=== PATIENT | male | born 1995 | race American Indian/Alaskan Native ===

== ENCOUNTER 2017-06-12 16:16 | Emergency (ER) | payer MEDICAID, OTHER ==
--- NOTE | 2017-06-12 16:52 | EDM.PDOC ---
ED HPI GENERAL MEDICAL PROBLEM - General Chief Complaint: Lower Extremity Injury/Pain Stated Complaint: DROPPED A FORKLIFT TIED ON RT FOOT Time Seen by Provider: 06/12/17 16:45 Source of Information: Reports: Patient History Limitations: Reports: No Limitations - History of Present Illness INITIAL COMMENTS - FREE TEXT/NARRATIVE: HISTORY AND PHYSICAL: History of present illness: [Patient comes to the emergency room complaining of right foot pain. States that he was at work at [employer] and was adjusting the level of the forklift osito when it came loose and fell onto the top of his right foot. He complains of pain and numbness. No previous injury or surgery to his foot. Was wearing a steel toed boot.] Review of systems: As per history of present illness and below otherwise all systems reviewed and negative. Past medical history: As per history of present illness and as reviewed below otherwise noncontributory. Surgical history: As per history of present illness and as reviewed below otherwise noncontributory. Social history: No reported history of drug or alcohol abuse. Family history: As per history of present illness and as reviewed below otherwise noncontributory. Physical exam: HEENT: Atraumatic, normocephalic. Extremities: Swelling and ecchymosis is present to the top of his medial right foot, just below first and second toes. Pedal pulses present. Neurovascular intact. Cap refill less than 2 seconds. Neurovascular unremarkable. Neuro: Awake, alert, oriented. Motor and sensory unremarkable throughout. Exam nonfocal. Diagnostics: [Right foot x-ray] Impression: [Right foot injury and pain] Plan: [Pain medication is offered which patient declines at this time. X-ray shows no fractures or abnormalities. Patient declines a walking boot, but would like to use crutches until he feels improved. Strict return precautions are given to patient. Follow-up with PCP in 2-3 days. Hqch-[id number] analgesics, rest, elevation. He is given a note excusing him from work for 2 days. He may return to work on Wednesday if he is feeling improved.] Definitive disposition and diagnosis as appropriate pending reevaluation and review of above. right foot Pain Score (Numeric/FACES): 7 - Related Data Allergies Allergy/AdvReac Type Severity Reaction Status Date / Time No Known Allergies Allergy Verified 06/12/17 16:41 Home Meds: Home Meds . [No Known Home Meds] 04/25/16 [History] Past Medical History HEENT History: Reports: None Cardiovascular History: Reports: None Respiratory History: Reports: None Gastrointestinal History: Reports: None Genitourinary History: Reports: None Musculoskeletal History: Reports: None Neurological History: Reports: None Endocrine/Metabolic History: Reports: None - Infectious Disease History Infectious Disease History: Reports: None - Past Surgical History HEENT Surgical History: Reports: None Cardiovascular Surgical History: Reports: None Respiratory Surgical History: Reports: None GI Surgical History: Reports: None Endocrine Surgical History: Reports: None Social & Family History - Tobacco Use Smoking Status *Q: Light Tobacco Smoker Years of Tobacco use: 1 Packs/Tins Daily: 0.1 Review of Systems - Review of Systems Review Of Systems: ROS reveals no pertinent complaints other than HPI. ED EXAM, GENERAL - Physical Exam Exam: See Below Course - Vital Signs Last Recorded V/S: Last Vital Signs Temp 97.8 F 06/12/17 16:41 Pulse 80 06/12/17 16:41 Resp 18 06/12/17 16:41 BP 157/68 H 06/12/17 16:41 Pulse Ox 97 06/12/17 16:41 - Orders/Labs/Meds Orders: Active Orders 24 hr Category Date Time Status Foot 2V Rt [CR] Stat Exams 06/12/17 16:51 Taken Departure - Departure Time of Disposition: 17:40 Disposition: Home, Self-Care 01 Condition: Good Clinical Impression: Right foot pain - Discharge Information Referrals: PCP,None [Primary Care Provider] - Forms: ED Department Discharge Additional Instructions: The following information is given to patients seen in the emergency department who are being discharged to home. This information is to outline your options for follow-up care. We provide all patients seen in our emergency department with a follow-up referral. The need for follow-up, as well as the timing and circumstances, are variable depending upon the specifics of your emergency department visit. If you don't have a primary care physician on staff, we will provide you with a referral. We always advise you to contact your personal physician following an emergency department visit to inform them of the circumstance of the visit and for follow-up with them and/or the need for any referrals to a consulting specialist. The emergency department will also refer you to a specialist when appropriate. This referral assures that you have the opportunity for follow-up care with a specialist. All of these measure are taken in an effort to provide you with optimal care, which includes your follow-up. Under all circumstances we always encourage you to contact your private physician who remains a resource for coordinating your care. When calling for follow-up care, please make the office aware that this follow-up is from your recent emergency room visit. If for any reason you are refused follow-up, please contact the [facility] emergency department at and asked to speak to the emergency department charge nurse. [facility] [address] [place] [id number] Follow-up with your primary care provider in 2-3 days. Rest, ice, elevation. [id number] analgesics and pain relievers. Return to ER as needed as discussed. - My Orders Last 24 Hours: My Active Orders 06/12/17 16:51 Foot 2V Rt [CR] Stat - Assessment/Plan Last 24 Hours: My Active Orders 06/12/17 16:51 Foot 2V Rt [CR] Stat
[2017-06-12 18:24] VITALS: BP 136/66
--- NOTE | 2017-06-14 09:38 | CR ---
EXAM DATE: 06/12/17 PATIENT'S AGE: 21 Patient: BELGICA SHEEHAN Facility: [place], [place] Site . Site : 1997 Study: XRay Extremity Right FOOT [id number] 5:13:53 PM Ordering Physician: Doctor Hernández Final Report: INDICATION: Right foot injury. TECHNIQUE: Two views of the right foot. COMPARISON: None. FINDINGS: No obvious soft tissue swelling, fracture or subluxation. IMPRESSION: Negative right foot. Dictated by Junior Torres MD @ Jun 12 2017 5:27PM (Electronic Signature) Report Signed by Proxy. HATTIE
== END 2017-06-12 18:20 | disposition home or self-care (01) ==
LOC: MW.ED 16:16
DX: S90.31XA Contusion of right foot, initial encounter (principal); F17.210 Nicotine dependence, cigarettes, uncomplicated; W20.8XXA Other cause of strike by thrown, projected or falling object, initial encounter
CPT/HCPCS: 73620-26-RT; 73620-RT; 99283

== ENCOUNTER 2019-05-24 21:36 | Emergency (ER) | payer MEDICAID, OTHER ==
[2019-05-24 21:46] VITALS: BP 120/81; PULSE 71
--- NOTE | 2019-05-24 21:46 | EDM.PDOC ---
ED HPI GENERAL MEDICAL PROBLEM - General Chief Complaint: General Stated Complaint: LEFT SIDE TOOTHACHE Time Seen by Provider: 05/24/19 21:46 Source of Information: Reports: Patient History Limitations: Reports: No Limitations - History of Present Illness INITIAL COMMENTS - FREE TEXT/NARRATIVE: HISTORY AND PHYSICAL: History of present illness: Patient is a 23-year-old male presents to the ED with complaint of tooth pain x 1 week. He states denies injury or trauma, fevers, chills, nausea, vomiting. He is schedule to see a dentist on July 19. He denies significant past medical history. Review of systems: As per history of present illness and below otherwise all systems reviewed and negative. Past medical history: As per history of present illness and as reviewed below otherwise noncontributory. Surgical history: As per history of present illness and as reviewed below otherwise noncontributory. Social history: No reported history of drug or alcohol abuse. Family history: As per history of present illness and as reviewed below otherwise noncontributory. Physical exam: General: Patient sitting comfortably in no acute distress and nontoxic appearing HEENT: Swelling and erythema of gums adjacent to teeth #23 and #22. Atraumatic, normocephalic, pupils reactive, negative for conjunctival pallor or scleral icterus, mucous membranes moist, throat clear, neck supple, nontender, trachea midline. No meningeal signs. Lungs: Clear to auscultation, breath sounds equal bilaterally, chest nontender. Heart: S1S2, regular, negative for clicks, rubs, or overt murmur. Abdomen: Soft, nondistended, nontender. Negative for masses or hepatosplenomegaly. Negative for costovertebral tenderness. No rigidity, rebound , guarding. Pelvis: Stable nontender. Genitourinary: Deferred. Rectal: Deferred. Extremities: Atraumatic, negative for cords or calf pain. Neurovascular unremarkable. Neuro: Awake, alert, oriented. Cranial nerves II through XII unremarkable. Cerebellum unremarkable. Motor and sensory unremarkable throughout. Exam nonfocal. Notes: Diagnostics: [] Therapeutics: Dental balls Toradol 60mg IM Prescriptions: Augmentin Impression: Dentalgia, dental infection Plan: Alternate tylenol and ibuprofen as needed take antibiotic as instructed Follow up with primary care provider Return to ED as needed as discussed Definitive disposition and diagnosis as appropriate pending reevaluation and review of above. dental Pain Score (Numeric/FACES): 10 - Related Data Allergies Allergy/AdvReac Type Severity Reaction Status Date / Time No Known Allergies Allergy Verified 05/24/19 21:46 Home Meds: Home Meds Amoxicillin/Potassium Clav [Augmentin 875-125 Tablet] 1 each PO BID 7 Days #14 tablet 05/24/19 [Rx] Past Medical History HEENT History: Reports: None Cardiovascular History: Reports: None Respiratory History: Reports: None Gastrointestinal History: Reports: None Genitourinary History: Reports: None Musculoskeletal History: Reports: None Neurological History: Reports: None Psychiatric History: Reports: None Endocrine/Metabolic History: Reports: None Hematologic History: Reports: None Immunologic History: Reports: None Oncologic (Cancer) History: Reports: None Dermatologic History: Reports: None - Infectious Disease History Infectious Disease History: Reports: None - Past Surgical History Head Surgeries/Procedures: Reports: None HEENT Surgical History: Reports: None Cardiovascular Surgical History: Reports: None Respiratory Surgical History: Reports: None GI Surgical History: Reports: None Endocrine Surgical History: Reports: None Social & Family History - Family History Family Medical History: Noncontributory - Caffeine Use Caffeine Use: Reports: Coffee ED ROS GENERAL - Review of Systems Review Of Systems: ROS reveals no pertinent complaints other than HPI. ED EXAM, GENERAL - Physical Exam Exam: See Below (see dictation) Course - Vital Signs Last Recorded V/S: Last Vital Signs Temp 97 F 05/24/19 21:41 Pulse 71 05/24/19 21:41 Resp 18 05/24/19 21:41 BP 120/81 05/24/19 21:41 Pulse Ox 96 05/24/19 21:41 - Orders/Labs/Meds Orders: Active Orders 24 hr Category Date Time Status Benzocaine [Hurricaine One 20%] Med 05/24/19 21:50 Once 2 each MUCMEM ONETIME ONE Ketorolac [Toradol] Med 05/24/19 21:50 Once 60 mg IM ONETIME ONE Lidocaine 2% [Xylocaine 2% Viscous] Med 05/24/19 21:50 Once 15 ml PO ONETIME ONE Medication Orders Lidocaine HCl (Xylocaine 2% Viscous) 15 ml PO ONETIME ONE Stop: 05/24/19 21:51 Meds: Medications Generic Name Dose Route Start Last Admin Trade Name Freq PRN Reason Stop Dose Admin Lidocaine HCl 15 ml 05/24/19 21:50 Xylocaine 2% Viscous PO 05/24/19 21:51 ONETIME ONE Departure - Departure Time of Disposition: 21:52 Disposition: Home, Self-Care 01 Condition: Good Clinical Impression: Dentalgia, Dental infection - Discharge Information Referrals: PCP,Unknown [Primary Care Provider] - Forms: ED Department Discharge Additional Instructions: The following information is given to patients seen in the emergency department who are being discharged to home. This information is to outline your options for follow-up care. We provide all patients seen in our emergency department with a follow-up referral. The need for follow-up, as well as the timing and circumstances, are variable depending upon the specifics of your emergency department visit. If you don't have a primary care physician on staff, we will provide you with a referral. We always advise you to contact your personal physician following an emergency department visit to inform them of the circumstance of the visit and for follow-up with them and/or the need for any referrals to a consulting specialist. The emergency department will also refer you to a specialist when appropriate. This referral assures that you have the opportunity for follow-up care with a specialist. All of these measure are taken in an effort to provide you with optimal care, which includes your follow-up. Under all circumstances we always encourage you to contact your private physician who remains a resource for coordinating your care. When calling for follow-up care, please make the office aware that this follow-up is from your recent emergency room visit. If for any reason you are refused follow-up, please contact the [facility] Emergency Department at and asked to speak to the emergency department charge nurse. [facility] [address] [place] [address] [id number] [address] [address] Alternate tylenol and ibuprofen as needed take antibiotic as instructed Follow up with primary care provider Return to ED as needed as discussed - My Orders Last 24 Hours: My Active Orders 05/24/19 21:50 Benzocaine [Hurricaine One 20%] 2 each MUCMEM ONETIME ONE Ketorolac [Toradol] 60 mg IM ONETIME ONE Lidocaine 2% [Xylocaine 2% Viscous] 15 ml PO ONETIME ONE - Assessment/Plan Last 24 Hours: My Active Orders 05/24/19 21:50 Benzocaine [Hurricaine One 20%] 2 each MUCMEM ONETIME ONE Ketorolac [Toradol] 60 mg IM ONETIME ONE Lidocaine 2% [Xylocaine 2% Viscous] 15 ml PO ONETIME ONE
[2019-05-24] MEDS ORDERED: Ketorolac 60 MG/2 ML SDV IM ONE (21:50)
[2019-05-24] MEDS ORDERED: Benzocaine 20% Topical Spray UD MUCMEM ONE (21:50)
[2019-05-24] MEDS ORDERED: Lidocaine 2% Viscous Solution 15 ML Cup PO ONE (21:50)
== END 2019-05-24 22:25 | disposition home or self-care (01) ==
LOC: MW.ED 21:36
DX: K04.7 Periapical abscess without sinus (principal)
CPT/HCPCS: 96372; 99282; A9270; J1885

== ENCOUNTER 2020-09-26 21:33 | Emergency (ER) | payer OTHER ==
[2020-09-26] MEDS ORDERED: Sodium Chloride 0.9% 10 ML Syringe FLUSH PRN (22:09)
[2020-09-26] MEDS ORDERED: Sodium Chloride 0.9% 2.5 ML Syringe FLUSH PRN (22:09)
[2020-09-26 22:32] LABS: BLOOD UREA NITROGEN,BUN 13 mg/dL (7.0-18.0); CARBON DIOXIDE,CO2 26.4 mmol/L (21.0-32.0); CHLORIDE,CL 104 mmol/L (98-107); GLUCOSE RANDOM 107 mg/dL (74-106); POTASSIUM,K 3.3 mmol/L (3.5-5.1); SODIUM,NA 141 mmol/L (136-148)
--- NOTE | 2020-09-26 22:34 | CR ---
INDICATION: Chest pain TECHNIQUE: Chest 2 views. COMPARISON: May 27, 2017 FINDINGS: Cardiovascular and mediastinum: Heart size and vasculature are normal in caliber and appearance. Mediastinum is within normal limits. Lungs and pleural spaces: Lungs are clear. No sign of infiltrate or mass. No sign of pleural effusion. No pneumothorax. Bones and soft tissues: No significant findings. IMPRESSION: No sign of acute disease. Dictated by Caridad Laurent MD @ Sep 26 2020 10:32PM Signed by Dr. Caridad Laurent @ Sep 26 2020 10:32PM
--- NOTE | 2020-09-26 22:41 | EDM.PDOC ---
ED HPI GENERAL MEDICAL PROBLEM - General Chief Complaint: Chest Pain Stated Complaint: CHEST PAIN Time Seen by Provider: 09/26/20 21:48 - History of Present Illness INITIAL COMMENTS - FREE TEXT/NARRATIVE: HISTORY AND PHYSICAL: History of present illness: This is a 24-year-old gentleman with no significant past medical history for hypertension, diabetes, liver, lung, kidney problems who presents to the ER today secondary to midsternal chest pain that started when he was getting out of his truck. Patient reports no nausea, vomiting, diarrhea, dysuria, frequency, urgency, fevers, shakes, chills, abdominal pain. Patient denies any shortness of breath or diaphoresis. Patient denies any family history of coronary disease but reports that his grandfather and uncle both required heart transplant but is unclear why. Patient reports that he does smoke tobacco. Patient denies any alcohol or drug use. Patient has no known drug allergies. Patient reports that the pain increases deep inspiration and palpation. Patient reports that the pain has been constant since it started approximately 1 to 2 hours ago. Review of systems: As per history of present illness and below otherwise all systems reviewed and negative. Past medical history: As per history of present illness and as reviewed below otherwise noncontributory. Surgical history: As per history of present illness and as reviewed below otherwise noncontri butory. Social history: No reported history of drug or alcohol abuse. Family history: As per history of present illness and as reviewed below otherwise noncontributory. Physical exam: Constitutional: Patient is oriented to person, place, and time. Appears well- developed and well-nourished. No distress. HEENT: Moist mucous membranes Head: Normocephalic and atraumatic Eyes: Right eye exhibits no discharge. Left eye exhibits no discharge. No scleral icterus Neck: Normal range of motion. No tracheal deviation present. Cardiovascular: Normal rate and regular rhythm. Pulmonary: Effort normal, no respiratory distress. Abdominal: No distention Musculoskeletal: Normal range of motion. No calf tenderness. No Homans' sign. No swelling. Neurologic: Alert and oriented to person, place and time. Skin: [place], warm and dry. Psychiatric: Normal mood and affect. Behavior is normal. Judgment and thought content normal. Nursing note and vital signs have been reviewed This patient was seen and evaluated during the 2019 SARS-CoV-2 novel coronavirus pandemic period. Community viral transmission is ongoing at time of this encounter and the emergency department is operating under pandemic response procedures. Diagnostics: EKG: As interpreted by ER physician: Roxanne: Nonspecific ST-T wave abnormalities Normal axis No evidence of ST elevation OK Normal sinus rhythm heart rate of 85 Chest Xray: Normal cardiac silhouette No infiltrates or effusions identified. No PTX No evidence of acute bony fracture. As interpreted by ER MD: [employer]: [] Assessment and plan: This is a 24-year-old gentleman who presents ER today with atypical chest pain that started acutely when he was getting out of his truck. Patient's presentation does not appear to be significant for cardiac etiology. Patient's EKG is unremarkable. Patient has a normal chest x-ray. Patient's troponin is negative. Patient's D-dimer is slightly elevated 0.55. Given his presentation and the elevated trop D-dimer, we will order a CTA to rule out a PE. Patient has been reevaluated in the ED and reports he feels significantly improved. 12:18 AM: CTA reveals no evidence of PE. There are small nodules that I did discuss with the patient and need to follow-up with a primary care physician to follow this up. 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 He reports that he has been doing this for only 2 days so this appears to be less likely the culprit. Patient will be discharged home with instructions to follow-up with her primary care physician this week if the pain persist. Reassessment at the time of disposition demonstrates that the patient is in no acute distress. The patient has remained stable throughout the entire ED visit and is without objective evidence for acute process requiring urgent intervention or hospitalization. The patient is stable for discharge, counseling is provided as documented above, discussed symptomatic treatment and specific conditions for return. I have spoken with the patient/caregiver and discussed todays findings, in addition to providing specific details for the plan of care. Questions are answered and there is agreement with the plan. Definitive disposition and diagnosis as appropriate pending reevaluation and review of above. Chest Pain Score (Numeric/FACES): 5 - Related Data Allergies Allergy/AdvReac Type Severity Reaction Status Date / Time No Known Allergies Allergy Verified 09/26/20 21:41 Home Meds: Home Meds . [No Known Home Meds] 09/26/20 [History] Past Medical History - Past Health History Medical/Surgical History: Denies Medical/Surgical History HEENT History: Reports: None Cardiovascular History: Reports: None Respiratory History: Reports: None Gastrointestinal History: Reports: None Other Gastrointestinal History: liver biopsy-benign Genitourinary History: Reports: None Musculoskeletal History: Reports: None Neurological History: Reports: None Psychiatric History: Reports: None Endocrine/Metabolic History: Reports: None Hematologic History: Reports: None Immunologic History: Reports: None Oncologic (Cancer) History: Reports: None Dermatologic History: Reports: None - Infectious Disease History Infectious Disease History: Reports: None - Past Surgical History Head Surgeries/Procedures: Reports: None HEENT Surgical History: Reports: None Cardiovascular Surgical History: Reports: None Respiratory Surgical History: Reports: None GI Surgical History: Reports: None Endocrine Surgical History: Reports: None Other Endocrine Surgeries/Procedures: liver biopsy Social & Family History - Family History Family Medical History: No Pertinent Family History - Tobacco Use Tobacco Use Status *Q: Current Every Day Tobacco User Years of Tobacco use: 6 Packs/Tins Daily: 0.5 - Caffeine Use Caffeine Use: Reports: Energy Drinks, Soda - Recreational Drug Use Recreational Drug Use: No ED ROS GENERAL - Review of Systems Review Of Systems: See Below ED EXAM, GENERAL - Physical Exam Exam: See Below Course - Vital Signs Last Recorded V/S: Last Vital Signs Temp 97.4 F 09/26/20 21:37 Pulse 107 H 09/26/20 21:37 Resp 18 09/26/20 21:37 BP 170/87 H 09/26/20 21:37 Pulse Ox 99 09/26/20 21:37 - Orders/Labs/Meds Orders: Active Orders 24 hr Category Date Time Status Sodium Chloride 0.9% [Saline Flush] Med 09/26/20 22:09 Active 10 ml FLUSH ASDIRECTED PRN Sodium Chloride 0.9% [Saline Flush] Med 09/26/20 22:09 Active 2.5 ml FLUSH ASDIRECTED PRN Saline Lock Insert [OM.PC] Stat Oth 09/26/20 22:09 Ordered Medication Orders Sodium Chloride (Saline Flush) 10 ml FLUSH ASDIRECTED PRN PRN Reason: Keep Vein Open Last Admin: 09/26/20 23:01 Dose: 10 ml Documented by: AYESHA Sodium Chloride (Saline Flush) 2.5 ml FLUSH ASDIRECTED PRN PRN Reason: Keep Vein Open Last Admin: 09/26/20 23:01 Dose: 2.5 ml Documented by: AYESHA Labs: Laboratory Tests 09/26/20 09/26/20 09/26/20 Range/Units 21:51 21:51 21:51 WBC 8.74 (4.0-11.0) K/uL RBC 5.25 (4.50-5.90) M/uL Hgb 16.0 (13.0-17.0) g/dL Hct 44.5 (38.0-50.0) % MCV 84.8 (80.0-98.0) fL MCH 30.5 (27.0-32.0) pg MCHC 36.0 (31.0-37.0) g/dL RDW Std Deviation 37.0 (28.0-62.0) fl RDW Coeff of Paras 12 (11.0-15.0) % Plt Count 276 (150-400) K/uL MPV 9.50 (7.40-12.00) fL Neut % (Auto) 56.3 (48.0-80.0) % Lymph % (Auto) 31.1 (16.0-40.0) % [place] % (Auto) 10.0 (0.0-15.0) % Eos % (Auto) 2.3 (0.0-7.0) % Baso % (Auto) 0.3 (0.0-1.5) % Neut # (Auto) 4.9 (1.4-5.7) K/uL Lymph # (Auto) 2.7 H (0.6-2.4) K/uL [place] # (Auto) 0.9 H (0.0-0.8) K/uL Eos # (Auto) 0.2 (0.0-0.7) K/uL Baso # (Auto) 0.0 (0.0-0.1) K/uL Nucleated RBC % 0.0 /100WBC Nucleated RBCs # 0 K/uL D-Dimer, Quantitative 0.55 H (0.0-0.50) mg/L FEU Sodium 141 (136-148) mmol/L Potassium 3.3 L (3.5-5.1) mmol/L Chloride 104 (98-107) mmol/L Carbon Dioxide 26.4 (21.0-32.0) mmol/L BUN 13 (7.0-18.0) mg/dL Creatinine 1.1 (0.8-1.3) mg/dL Est Cr Clr Drug Dosing 132.75 mL/min Estimated GFR (MDRD) > 60.0 ml/min Glucose 107 H (74-106) mg/dL Calcium 8.7 (8.5-10.1) mg/dL Total Bilirubin 0.6 (0.2-1.0) mg/dL AST 41 H (15-37) IU/L ALT 74 H (14-63) IU/L Alkaline Phosphatase 116 (46-116) U/L Troponin I < 0.050 (0.000-0.056) ng/mL Total Protein 7.5 (6.4-8.2) g/dL Albumin 3.9 (3.4-5.0) g/dL Globulin 3.6 (2.6-4.0) g/dL Albumin/Globulin Ratio 1.1 (0.9-1.6) Meds: Medications Generic Name Dose Route Start Last Admin Trade Name Freq PRN Reason Stop Dose Admin Sodium Chloride 10 ml 09/26/20 22:09 09/26/20 23:01 Saline Flush FLUSH 10 ml ASDIRECTED PRN Administration Keep Vein Open Sodium Chloride 2.5 ml 09/26/20 22:09 09/26/20 23:01 Saline Flush FLUSH 2.5 ml ASDIRECTED PRN Administration Keep Vein Open Discontinued Medications Generic Name Dose Route Start Last Admin Trade Name Freq PRN Reason Stop Dose Admin Iopamidol 100 ml 09/26/20 23:22 09/26/20 23:22 Isovue Multipack-370 (76%) IVPUSH 09/26/20 23:23 100 ml ONETIME STA Administration Departure - Departure Time of Disposition: 00:19 Disposition: Home, Self-Care 01 Condition: Good Clinical Impression: Atypical chest pain - Discharge Information Instructions: Nonspecific Chest Pain, Adult Referrals: PCP,Not In Area [Primary Care Provider] - Forms: ED Department Discharge Additional Instructions: You were seen and evaluated in the ER today secondary to pain in your chest. Your blood tests were all normal except for a slightly elevated D-dimer test. Secondary to your elevated D-dimer test, a CTA of your chest was performed so that we can make sure that you do not have a blood clot in your lungs. CTA of your chest was negative for blood clots but did show that you had a couple small nodules. Nodules are generally benign and could be a result of irritation in your lungs from a long time ago. It is recommended that you follow-up with your doctor for a repeat CAT scan in 6 months to make sure that these nodules are not changing in size. We recommend they take ibuprofen to assist you with pain and discomfort. The following information is given to patients seen in the emergency department who are being discharged to home. This information is to outline your options for follow-up care. We provide all patients seen in our emergency department with a follow-up referral. The need for follow-up, as well as the timing and circumstances, are variable depending upon the specifics of your emergency department visit. If you don't have a primary care physician on staff, we will provide you with a referral. We always advise you to contact your personal physician following an emergency department visit to inform them of the circumstance of the visit and for follow-up with them and/or the need for any referrals to a consulting specialist. The emergency department will also refer you to a specialist when appropriate. This referral assures that you have the opportunity for follow-up care with a specialist. All of these measure are taken in an effort to provide you with optimal care, which includes your follow-up. Under all circumstances we always encourage you to contact your private physician who remains a resource for coordinating your care. When calling for follow-up care, please make the office aware that this follow-up is from your recent emergency room visit. If for any reason you are refused follow-up, please contact the [facility] Emergency Department at and asked to speak to the emergency department charge nurse. [facility] [address] [place] [id number] [facility] [address] [place] [id number] Sepsis Event Note (ED) - Evaluation Sepsis Screening Result: No Definite Risk - Focused Exam Vital Signs: Vital Signs Temp Pulse Resp BP Pulse Ox 09/26/20 21:37 97.4 F 107 H 18 170/87 H 99 - My Orders Last 24 Hours: My Active Orders 09/26/20 22:09 Sodium Chloride 0.9% [Saline Flush] 10 ml FLUSH ASDIRECTED PRN Sodium Chloride 0.9% [Saline Flush] 2.5 ml FLUSH ASDIRECTED PRN Saline Lock Insert [OM.PC] Stat - Assessment/Plan Last 24 Hours: My Active Orders 09/26/20 22:09 Sodium Chloride 0.9% [Saline Flush] 10 ml FLUSH ASDIRECTED PRN Sodium Chloride 0.9% [Saline Flush] 2.5 ml FLUSH ASDIRECTED PRN Saline Lock Insert [OM.PC] Stat
[2020-09-26] MEDS ORDERED: Iopamidol 755 MG/ML 500 ML Multipack Bottle IVPUSH STA (23:22)
--- NOTE | 2020-09-26 23:56 | CT ---
INDICATION: Chest pain. Elevated D-dimer. Evaluate for pulmonary embolism. CT CHEST WITH CONTRAST TECHNIQUE: Multidetector CT imaging was performed through the chest following intravenous contrast administration using 100 mL Isovue 370. Coronal and sagittal reconstructions were generated. COMPARISON: None. FINDINGS: Lungs and airways: Trace amount of atelectasis in the lung bases. No confluent pulmonary consolidation. Very small subpleural lung nodules in the left lower lobe on images 93-96, in the right lower lobe on image 111, and in the right upper lobe on image 36, series 402. Central airways are patent. Pleura and pleural spaces: No pleural effusions or pneumothorax. Heart and mediastinum: Normal heart size. No significant pericardial effusion. No pathologically enlarged mediastinal lymph nodes. Vascular structures: Evaluation is mildly limited by image degradation due to large body habitus. No definite filling defects in the pulmonary arterial tree to suggest pulmonary emboli. Normal caliber thoracic aorta. Chest wall and axillae: Mild bilateral gynecomastia. No mass or axillary lymphadenopathy. Osseous structures: Normal for age. No acute fractures identified. Upper abdomen: Unremarkable. IMPRESSION: 1. No pulmonary emboli or other acute intrathoracic abnormality identified. 2. Nonacute findings as detailed above. ROBERTO FELTON MD [employer] Dictated by Vaibhav Felton MD @ 09/26/2020 11:53:45 PM Dictated by: Vaibhav Felton MD @ 09/26/2020 23:55:27 (Electronically Signed)
[2020-09-27 01:28] VITALS: BP 129/76; PULSE 88
== END 2020-09-27 00:37 | disposition home or self-care (01) ==
LOC: MW.ED 21:33
DX: R07.89 Other chest pain (principal); I10 Essential (primary) hypertension; E11.9 Type 2 diabetes mellitus without complications; Z72.0 Tobacco use
CPT/HCPCS: 36415; 71046; 71275; 80053; 84484; 85025; 85379; 93005; 99285; Q9967; 93010; 99283

== ENCOUNTER 2021-03-04 15:59 | Emergency (ER) | payer MEDICAID ==
[2021-03-04] MEDS ORDERED: Ibuprofen 800 MG Tab PO ONE (16:59)
--- NOTE | 2021-03-04 17:21 | EDM.PDOC ---
ED HPI GENERAL MEDICAL PROBLEM - General Chief Complaint: Chest Pain Stated Complaint: CHEST PAINS Time Seen by Provider: 03/04/21 16:07 Source of Information: Reports: Patient - History of Present Illness INITIAL COMMENTS - FREE TEXT/NARRATIVE: Patient presents complaining of central chest pain after lifting a 600 pound heavy object and trying to move it to the side today at work. Pain is sharp and worse with movement. No direct trauma. Patient had chest pain in September and had a negative work-up at that time except CT scan with some pulmonary nodules which he was retold today that he will need to follow-up with her primary care doctor on. No history of blood clot. No unilateral leg swelling. No recent travel, injury, cancer, surgery. Positive smoking. Patient denies any recent fevers chills or cough. chest Pain Score (Numeric/FACES): 7 - Related Data Allergies Allergy/AdvReac Type Severity Reaction Status Date / Time No Known Allergies Allergy Verified 03/04/21 16:09 Home Meds: Home Meds . [No Known Home Meds] 09/26/20 [History] Past Medical History - Past Health History Medical/Surgical History: Denies Medical/Surgical History HEENT History: Reports: None Cardiovascular History: Reports: None Respiratory History: Reports: None Gastrointestinal History: Reports: None Other Gastrointestinal History: liver biopsy-benign Genitourinary History: Reports: None Musculoskeletal History: Reports: None Neurological History: Reports: None Psychiatric History: Reports: None Endocrine/Metabolic History: Reports: None Hematologic History: Reports: None Immunologic History: Reports: None Oncologic (Cancer) History: Reports: None Dermatologic History: Reports: None - Infectious Disease History Infectious Disease History: Reports: None - Past Surgical History Head Surgeries/Procedures: Reports: None HEENT Surgical History: Reports: None Cardiovascular Surgical History: Reports: None Respiratory Surgical History: Reports: None GI Surgical History: Reports: None Endocrine Surgical History: Reports: None Other Endocrine Surgeries/Procedures: liver biopsy Social & Family History - Family History Family Medical History: No Pertinent Family History - Caffeine Use Caffeine Use: Reports: Energy Drinks, Soda - Recreational Drug Use Recreational Drug Use: No ED ROS GENERAL - Review of Systems Review Of Systems: See Below Constitutional: Denies: Fever, Chills Respiratory: Denies: Shortness of Breath Cardiovascular: Reports: Chest Pain GI/Abdominal: Denies: Abdominal Pain, Vomiting Musculoskeletal: Reports: Muscle Pain Skin: Denies: Rash ED EXAM, GENERAL - Physical Exam Exam: See Below Free Text/Narrative:: CONSTITUTIONAL: well appearing in no acute distress SKIN: dry, and intact without rash HENT: Normocephalic, atraumatic, NECK: normal range of motion PULMONARY: normal chest rise and fall, no respiratory distress or stridor no rales rhonchi or wheezing CVS: Regular rate and rhythm no murmurs rubs or gallops NEUROLOGIC: normal speech, moves all extremities, grossly non-focal MUSCULOSKELETAL: no gross deformities, atraumatic PSYCHIATRIC: normal mood and affect #1 Interpretation EKG Date: 03/04/21 Time: 17:19 EKG Interpretation Comments: EKG: NSR, nonspecific ST/T changes, Rate - 82 Course - Vital Signs Text/Narrative:: Differential diagnosis: Musculoskeletal, pneumothorax, PE, pericarditis, ACS, other Patient with chest pain after lifting heavy object. Chest x-ray is unremarkable with reassuring EKG. Ibuprofen supportive treatment and PCP follow-up with return precautions patient is retold that he will need to follow-up in the next couple weeks or so for a follow-up visit regards to the pulmonary nodules Last Recorded V/S: Last Vital Signs Temp 36.2 C 03/04/21 16:05 Pulse 66 03/04/21 17:13 Resp 18 03/04/21 17:13 BP 144/72 H 03/04/21 17:13 Pulse Ox 95 03/04/21 17:13 - Orders/Labs/Meds Orders: Active Orders 24 hr Category Date Time Status EKG Documentation Completion [RC] STAT Care 03/04/21 16:45 Active Chest 1V Frontal [CR] Stat Exams 03/04/21 16:13 Taken Meds: Medications Discontinued Medications Generic Name Dose Route Start Last Admin Trade Name Anjana PRN Reason Stop Dose Admin Ibuprofen 800 mg 03/04/21 16:59 03/04/21 17:12 Ibuprofen 800 Mg Tab PO 03/04/21 17:00 800 mg ONETIME ONE Administration Departure - Departure Time of Disposition: 17:20 Disposition: Home, Self-Care 01 Condition: Good Clinical Impression: Chest pain - Discharge Information Referrals: PCP,None [Primary Care Provider] - Additional Instructions: Take ibuprofen 800 mg 2-3 times a day for the next several days as needed. Return for increasing chest pain or shortness of breath or change or worsening condition. Follow-up with primary care doctor for reevaluation in a couple of days. Listed below are some of the primary clinics in the area. You also need to follow-up in regard to the pulmonary nodules on the CT scan as we discussed. [facility] [address] [place] [id number] [facility] [address] [place] [id number] Sepsis Event Note (ED) - Evaluation Sepsis Screening Result: No Definite Risk - Focused Exam Vital Signs: Vital Signs Temp Pulse Resp BP Pulse Ox 03/04/21 17:13 66 18 144/72 H 95 03/04/21 16:05 36.2 C 76 16 171/96 H 99 - My Orders Last 24 Hours: My Active Orders 03/04/21 16:13 Chest 1V Frontal [CR] Stat 03/04/21 16:45 EKG Documentation Completion [RC] STAT - Assessment/Plan Last 24 Hours: My Active Orders 03/04/21 16:13 Chest 1V Frontal [CR] Stat 03/04/21 16:45 EKG Documentation Completion [RC] STAT
--- NOTE | 2021-03-04 17:22 | CR ---
For Patients: As a result of the Century Cures Act, medical imaging exams and procedure reports are released immediately into your electronic medical record. You may view this report before your referring provider. If you have questions, please contact your health care provider. INDICATION: chest pain TECHNIQUE: Chest 1 view. COMPARISON: 09/26/20 FINDINGS: Cardiovascular and mediastinum: Heart size and vasculature are normal in caliber and appearance. Mediastinum is within normal limits. Lungs and pleural space: Lungs are clear. No sign of infiltrate or mass. No sign of pleural effusion. No pneumothorax. Bones and soft tissues: No significant findings. IMPRESSION: Unremarkable chest. Dictated by: Isaias Interiano MD @ 03/04/2021 17:20:23 (Electronically Signed)
[2021-03-04 17:29] VITALS: BP 146/69; PULSE 60
== END 2021-03-04 17:30 | disposition home or self-care (01) ==
LOC: MW.ED 15:59
DX: R07.9 Chest pain, unspecified (principal); F17.200 Nicotine dependence, unspecified, uncomplicated
CPT/HCPCS: 71045; 93005; 99285; A9270

== ENCOUNTER 2021-03-10 13:10 | Emergency (ER) | payer MEDICAID ==
--- NOTE | 2021-03-10 13:16 | EDM.PDOC ---
ED HPI GENERAL MEDICAL PROBLEM - General Chief Complaint: Chest Pain Stated Complaint: CHEST PAIN Time Seen by Provider: 03/10/21 13:12 Source of Information: Reports: Patient History Limitations: Reports: No Limitations - History of Present Illness INITIAL COMMENTS - FREE TEXT/NARRATIVE: 25-year-old male presents for chest pain. Patient notes symptoms been going on for about 2 months. He describes it as a mid substernal chest pain that is worse with inspiration. Seems get worse in the afternoons and evenings. No associated nausea or vomiting. Mild associated shortness of breath. No lower extremity pain, swelling, redness. He was seen in the emergency department in September for similar symptoms and had a CTA of his chest which was unremarkable aside from some pulmonary nodules. He was seen here about a week ago for similar symptoms which were attributed to musculoskeletal pain. States that he took Motrin prior to arrival which did not really help. He states he has follow-up with her primary care physician in April. He is a smoker. Chest Pain Score (Numeric/FACES): 5 - Related Data Allergies Allergy/AdvReac Type Severity Reaction Status Date / Time No Known Allergies Allergy Verified 03/04/21 16:09 Home Meds: Home Meds . [No Known Home Meds] 09/26/20 [History] Past Medical History - Past Health History Medical/Surgical History: Denies Medical/Surgical History HEENT History: Reports: None Cardiovascular History: Reports: None Respiratory History: Reports: None Gastrointestinal History: Reports: None Other Gastrointestinal History: liver biopsy-benign Genitourinary History: Reports: None Musculoskeletal History: Reports: None Neurological History: Reports: None Psychiatric History: Reports: None Endocrine/Metabolic History: Reports: None Hematologic History: Reports: None Immunologic History: Reports: None Oncologic (Cancer) History: Reports: None Dermatologic History: Reports: None - Infectious Disease History Infectious Disease History: Reports: None - Past Surgical History Head Surgeries/Procedures: Reports: None HEENT Surgical History: Reports: None Cardiovascular Surgical History: Reports: None Respiratory Surgical History: Reports: None GI Surgical History: Reports: None Endocrine Surgical History: Reports: None Other Endocrine Surgeries/Procedures: liver biopsy Social & Family History - Family History Family Medical History: No Pertinent Family History - Caffeine Use Caffeine Use: Reports: Energy Drinks, Soda ED ROS GENERAL - Review of Systems Review Of Systems: Comprehensive ROS is negative, except as noted in HPI. ED EXAM, GENERAL - Physical Exam Exam: See Below Exam Limited By: No Limitations General Appearance: Alert, WD/WN, No Apparent Distress Ears: Hearing Grossly Normal Throat/Mouth: Normal Voice, No Airway Compromise Head: Atraumatic, Normocephalic Neck: Normal Inspection Respiratory/Chest: No Respiratory Distress, Lungs Clear, Normal Breath Sounds, No Accessory Muscle Use, Chest Non-Tender Cardiovascular: Normal Peripheral Pulses, Regular Rate, Rhythm, No Edema Extremities: Normal Inspection Neurological: Alert, Normal Cognition, Normal Gait Psychiatric: Normal Affect, Normal Mood Skin Exam: Warm, Dry, Intact, Normal Color #1 Interpretation EKG Date: 03/10/21 Time: 13:12 Rhythm: NSR Rate (Beats/Min): 87 [place]: Normal P-Wave: Present QRS: Normal ST-T: Normal QT: Normal HI/PQ Interval: 168 EKG Interpretation Comments: normal EKG Course - Vital Signs Last Recorded V/S: Last Vital Signs Temp 97.5 F 03/10/21 13:14 Pulse 107 H 03/10/21 13:14 Resp 20 03/10/21 13:14 BP 179/84 H 03/10/21 13:14 Pulse Ox 97 03/10/21 13:14 - Orders/Labs/Meds Orders: Active Orders 24 hr Category Date Time Status Cardiac Monitoring [RC] . DIRECTED Care 03/10/21 13:19 Active EKG Documentation Completion [RC] STAT Care 03/10/21 13:19 Active Chest 1V Frontal [CR] Stat Exams 03/10/21 13:19 Taken Sodium Chloride 0.9% [Normal Saline] 1,000 ml Med 03/10/21 13:19 Active IV .Bolus Sodium Chloride 0.9% [Saline Flush] Med 03/10/21 13:19 Active 10 ml FLUSH ASDIRECTED PRN Sodium Chloride 0.9% [Saline Flush] Med 03/10/21 13:19 Active 2.5 ml FLUSH ASDIRECTED PRN Saline Lock Insert [OM.PC] Stat Oth 03/10/21 13:19 Ordered Medication Orders Sodium Chloride (Normal Saline) 1,000 mls @ 999 mls/hr IV .Bolus ONE Stop: 03/10/21 14:19 Last Admin: 03/10/21 13:28 Dose: 999 mls/hr Documented by: MILES Sodium Chloride (Sodium Chloride 0.9% 10 Ml Syringe) 10 ml FLUSH ASDIRECTED PRN PRN Reason: Keep Vein Open Last Admin: 03/10/21 13:28 Dose: 10 ml Documented by: MILES Sodium Chloride (Sodium Chloride 0.9% 2.5 Ml Syringe) 2.5 ml FLUSH ASDIRECTED PRN PRN Reason: Keep Vein Open Last Admin: 03/10/21 13:29 Dose: 2.5 ml Documented by: MILES Labs: Laboratory Tests 03/10/21 03/10/21 03/10/21 Range/Units 13:25 13:25 13:25 WBC 7.18 (4.0-11.0) K/uL RBC 5.21 (4.50-5.90) M/uL Hgb 15.6 (13.0-17.0) g/dL Hct 43.7 (38.0-50.0) % MCV 83.9 (80.0-98.0) fL MCH 29.9 (27.0-32.0) pg MCHC 35.7 (31.0-37.0) g/dL RDW Std Deviation 37.9 (28.0-62.0) fl RDW Coeff of Paras 13 (11.0-15.0) % Plt Count 262 (150-400) K/uL MPV 9.60 (7.40-12.00) fL Neut % (Auto) 67.8 (48.0-80.0) % Lymph % (Auto) 22.7 (16.0-40.0) % [place] % (Auto) 7.2 (0.0-15.0) % Eos % (Auto) 1.9 (0.0-7.0) % Baso % (Auto) 0.4 (0.0-1.5) % Neut # (Auto) 4.9 (1.4-5.7) K/uL Lymph # (Auto) 1.6 (0.6-2.4) K/uL [place] # (Auto) 0.5 (0.0-0.8) K/uL Eos # (Auto) 0.1 (0.0-0.7) K/uL Baso # (Auto) 0.0 (0.0-0.1) K/uL Nucleated RBC % 0.0 /100WBC Nucleated RBCs # 0 K/uL D-Dimer, Quantitative 0.43 (0.0-0.50) mg/L FEU Sodium 139 (136-148) mmol/L Potassium 3.7 (3.5-5.1) mmol/L Chloride 106 (98-107) mmol/L Carbon Dioxide 25.3 (21.0-32.0) mmol/L BUN 11 (7.0-18.0) mg/dL Creatinine 1.0 (0.8-1.3) mg/dL Est Cr Clr Drug Dosing 126.10 mL/min Estimated GFR (MDRD) > 60.0 ml/min Glucose 113 H (74-106) mg/dL Calcium 8.5 (8.5-10.1) mg/dL Total Bilirubin 0.4 (0.2-1.0) mg/dL AST 21 (15-37) IU/L ALT 50 (14-63) IU/L Alkaline Phosphatase 120 H (46-116) U/L Troponin I < 0.050 (0.000-0.056) ng/mL Total Protein 7.0 (6.4-8.2) g/dL Albumin 3.8 (3.4-5.0) g/dL Globulin 3.2 (2.6-4.0) g/dL Albumin/Globulin Ratio 1.2 (0.9-1.6) Meds: Medications Generic Name Dose Route Start Last Admin Trade Name Freq PRN Reason Stop Dose Admin Sodium Chloride 1,000 mls @ 999 mls/hr 03/10/21 13:03/10/21 13:28 Normal Saline IV 03/10/21 14:19 999 mls/hr .Bolus ONE Administration Sodium Chloride 10 ml 03/10/21 13:19 03/10/21 13:28 Sodium Chloride 0.9% 10 Ml Syringe FLUSH 10 ml ASDIRECTED PRN Administration Keep Vein Open Sodium Chloride 2.5 ml 03/10/21 13:19 03/10/21 13:29 Sodium Chloride 0.9% 2.5 Ml Syringe FLUSH 2.5 ml ASDIRECTED PRN Administration Keep Vein Open Discontinued Medications Generic Name Dose Route Start Last Admin Trade Name Freq PRN Reason Stop Dose Admin Al Hydroxide/Mg Hydroxide 15 0 ml 03/10/21 13:19 03/10/21 13:28 ml/ Lidocaine HCl 5 ml PO 03/10/21 13:20 1 each ONETIME ONE Administration Famotidine 20 mg 03/10/21 13:19 03/10/21 13:28 Famotidine 20 Mg/2 Ml Sdv IVPUSH 03/10/21 13:20 20 mg ONETIME ONE Administration - Re-Assessments/Exams Free Text/Narrative Re-Assessment/Exam: 03/10/21 13:21 We will get labs including cardiac enzymes and D-dimer. Will get chest x-ray. Will give Pepcid and GI cocktail. Will follow up results and disposition accordingly. Will give IV fluid boluses patient is mildly tachycardic. 03/10/21 14:09 Labs and imaging are unremarkable. Patient does note some improvement in symptoms after medications. Will discharge patient with PMD follow-up and will give a 1 month course of Pepcid to see if helps with his symptoms. Return precautions were discussed at length. Departure - Departure Time of Disposition: 14:11 Disposition: Home, Self-Care 01 Condition: Good Clinical Impression: Chest pain Qualifiers: Chest pain type: unspecified Qualified Code(s): R07.9 - Chest pain, unspecified - Discharge Information Instructions: Nonspecific Chest Pain, Adult Forms: ED Department Discharge Additional Instructions: I sent medications to your pharmacy which can help with stomach acid which is often the cause of chest pain in a young, healthy patients. However if you are having worsening chest pain or difficulty breathing I rather you come back to the emergency department for reassessment and ignore it. I also like you to follow-up with your primary care physician. Just because you are prescribed you stomach acid medications does not mean that you can be completely cleared from a cardiac perspective until you are cleared by your primary. The following information is given to patients seen in the emergency department who are being discharged to home. This information is to outline your options for follow-up care. We provide all patients seen in our emergency department with a follow-up referral. The need for follow-up, as well as the timing and circumstances, are variable depending upon the specifics of your emergency department visit. If you don't have a primary care physician on staff, we will provide you with a referral. We always advise you to contact your personal physician following an emergency department visit to inform them of the circumstance of the visit and for follow-up with them and/or the need for any referrals to a consulting specialist. The emergency department will also refer you to a specialist when appropriate. This referral assures that you have the opportunity for follow-up care with a specialist. All of these measure are taken in an effort to provide you with optimal care, which includes your follow-up. Under all circumstances we always encourage you to contact your private physician who remains a resource for coordinating your care. When calling for follow-up care, please make the office aware that this follow-up is from your recent emergency room visit. If for any reason you are refused follow-up, please contact the [facility] Emergency Department at and asked to speak to the emergency department charge nurse. Please follow up with your primary care physician. If you do not have a primary care physician, see below: [facility] [address] [place] [id number] [facility] [address] [place] [id number] [facility] [address] [place] [id number] Sepsis Event Note (ED) - Focused Exam Vital Signs: Vital Signs Temp Pulse Resp BP Pulse Ox 03/10/21 13:14 97.5 F 107 H 20 179/84 H 97 - My Orders Last 24 Hours: My Active Orders 03/10/21 13:19 Cardiac Monitoring [RC] . DIRECTED EKG Documentation Completion [RC] STAT Chest 1V Frontal [CR] Stat Sodium Chloride 0.9% [Normal Saline] 1,000 ml IV .Bolus Sodium Chloride 0.9% [Saline Flush] 10 ml FLUSH ASDIRECTED PRN Sodium Chloride 0.9% [Saline Flush] 2.5 ml FLUSH ASDIRECTED PRN Saline Lock Insert [OM.PC] Stat - Assessment/Plan Last 24 Hours: My Active Orders 03/10/21 13:19 Cardiac Monitoring [RC] . DIRECTED EKG Documentation Completion [RC] STAT Chest 1V Frontal [CR] Stat Sodium Chloride 0.9% [Normal Saline] 1,000 ml IV .Bolus Sodium Chloride 0.9% [Saline Flush] 10 ml FLUSH ASDIRECTED PRN Sodium Chloride 0.9% [Saline Flush] 2.5 ml FLUSH ASDIRECTED PRN Saline Lock Insert [OM.PC] Stat
[2021-03-10] MEDS ORDERED: Sodium Chloride 0.9% 1,000 ML IV ONE (13:19)
[2021-03-10] MEDS ORDERED: Famotidine 20 MG/2 ML SDV IVPUSH ONE (13:19)
[2021-03-10] MEDS ORDERED: Sodium Chloride 0.9% 10 ML Syringe FLUSH PRN (13:19)
[2021-03-10] MEDS ORDERED: Alum Hydrox/Mag Hydrox/Simeth 15 ML, Lidocaine 2% 5 ML PO ONE ×2 (13:19)
[2021-03-10] MEDS ORDERED: Sodium Chloride 0.9% 2.5 ML Syringe FLUSH PRN (13:19)
[2021-03-10 13:58] LABS: BLOOD UREA NITROGEN,BUN 11 mg/dL (7.0-18.0); CARBON DIOXIDE,CO2 25.3 mmol/L (21.0-32.0); CHLORIDE,CL 106 mmol/L (98-107); GLUCOSE RANDOM 113 mg/dL (74-106); POTASSIUM,K 3.7 mmol/L (3.5-5.1); SODIUM,NA 139 mmol/L (136-148)
--- NOTE | 2021-03-10 14:12 | CR ---
Indication: Chest pain Comparison: Single view chest March 04, 2021 Technique: Single AP view chest Findings: There is hyperinflation and chronic interstitial change. There are mildly increased interstitial markings from comparison likely representing developing pulmonary edema. Cardiac silhouette is mildly prominent. The bony thorax is grossly intact. Impression: There is increased interstitial markings seen throughout the bilateral hemithoraces likely representing pulmonary edema. Dictated by Seth Campos MD @ 03/10/2021 2:11:[address] Seth Campos @ Mar 10 2021 2:11PM
[2021-03-10 19:22] VITALS: BP 106/77; PULSE 90
== END 2021-03-10 14:30 | disposition home or self-care (01) ==
LOC: MW.ED 13:10
DX: R07.2 Precordial pain (principal)
CPT/HCPCS: 36415; 71045; 80053; 84484; 85025; 85379; 93005; 96374; 99285; A9270; J3490; J7030

== ENCOUNTER 2021-03-12 10:07 | Emergency (ER) | payer MEDICAID ==
[2021-03-12] MEDS ORDERED: Alum Hydrox/Mag Hydrox/Simeth 15 ML, Metoclopramide 5 MG, Lidocaine 2% 5 ML PO ONE ×3 (10:38)
[2021-03-12 10:39] VITALS: BP 132/68
--- NOTE | 2021-03-12 10:44 | EDM.PDOC ---
ED HPI GENERAL MEDICAL PROBLEM - General Chief Complaint: Chest Pain Stated Complaint: CHEST PAIN Time Seen by Provider: 03/12/21 10:08 Source of Information: Reports: Patient History Limitations: Reports: No Limitations - History of Present Illness INITIAL COMMENTS - FREE TEXT/NARRATIVE: HISTORY AND PHYSICAL: History of present illness: Patient is a 25-year-old male who presents to the emergency room with 2+ month history of midsternal chest pain. Patient has been seen 3 previous times for chest pain (first seen in September and last seen 2 days ago). He describes the pain as sharp midsternal pain that occasionally worsens with inspiration. He has occasional mild shortness of breath at times. He states he has not been able to get into his primary care provider until April 28. He is here today hoping he can get a referral to cardiology or "someone who can figure this out". Patient denies any fever, chills, headache, change in vision, syncope or near syncope. Denies any back pain, hemoptysis or cough. Denies any abdominal pain, nausea, vomiting, diarrhea, constipation or dysuria. Has not noted any blood in urine or stool. Patient has been eating and drinking appropriately. Patient does have a positive smoking history. No personal history of heart disease. Review of systems: As per history of present illness and below otherwise all systems reviewed and negative. Past medical history: As per history of present illness and as reviewed below otherwise noncontributory. Surgical history: As per history of present illness and as reviewed below otherwise noncontributory. Social history: See social history for further information Family history: As per history of present illness and as reviewed below otherwise noncontributory. Physical exam: General: Well developed and well nourished 25 year old male. Alert and orientated x 3. Nontoxic in appearance and in no acute distress. Vital signs are stable and have been reviewed by me. Nursing notes were reviewed. HEENT: Atraumatic, normocephalic, pupils equal and reactive bilaterally, negative for conjunctival pallor or scleral icterus, mucous membranes moist, trachea midline. No drooling or trismus noted. No meningeal signs. No hot potato voice noted. Lungs: Clear to auscultation bilaterally. No wheezes, rales, or rhonchi. Chest nontender. Normal work of breathing, no accessory muscles used. Heart: S1S2, regular rate and rhythm without overt murmur, gallops, or rubs. No JVD. No peripheral edema Abdomen: Soft, nondistended, nontender. Normoactive bowel sounds. Negative for masses or costovertebral tenderness. Skin: Intact, warm, dry. No lesions or rashes noted. Hematologic: No petechiae or purpra. Mucosa appropriate color and normal nail bed color and refill. Extremities: Atraumatic, moves all extremities per self without difficulty or deficits, negative for cords or calf pain. Neurovascular unremarkable. Neuro: Awake, alert, oriented. Cranial nerves II through XII unremarkable. Cerebellum unremarkable. Motor and sensory unremarkable throughout. Exam nonfocal. Psychiatric: Mood and affect are appropriate. Normal thought process. Answering questions appropriately. Notes: *This patient was seen and evaluated during the 2019 SARS-CoV-2 novel coronavirus pandemic period. Community viral transmission is ongoing at time of this encounter and the emergency department is operating under pandemic response procedures. I have reviewed the 3 previous ER visits for his chest pain, all of which have been within normal limits. He has had cardiac enzymes, CTA of the chest, chest x-rays and EKGs that are unremarkable. Patient's physical exam is unremarkable. Vital signs are stable. Patient states that his pain has unchanged from the past 2 months, I will do basic lab work and see if we can expedite his clinic follow-up so he can get the referral he is requesting. Patient is agreeable to plan of care. EKG shows a normal sinus rhythm with a rate of 61. No concerning findings. Lab work is unremarkable. He did have a chest x-ray done 2 days ago, no concern for pneumonia and lung sounds are clear. Discussed with patient, he would like a ZIO patch to wear over the next 2 weeks. Results will go to Dr Mckenzie at [facility]. I have talked with the patient about today's findings, in addition to providing specific details for plan of care. We did get an expedited follow up for patient to see provider on 03/18/21 at [facility]. Reassessment at the time of disposition demonstrates that the patient is in no acute distress. The patient is stable for discharge, counseling was provided and we discussed in great detail signs and symptoms that would prompt them to return to the Emergency Department. Medication, follow up and supportive care measures were reviewed and discussed. Voices understanding and is agreeable to plan of care. Denies any further questions or concerns at this time. Diagnostics: CBC, CMP, troponin, TSH Therapeutics: GI cocktail Prescription: ZIO patch Impression: Nonspecific chest pain Plan: 1. You were evaluated today on an emergent basis. Your lab work and EKG are normal. 2. You can alternate Tylenol and ibuprofen as needed for pain and fever management. 3. We have made you an expedited appointment to establish care and get a referral to cardiology. You are seeing Elaine Steward at [facility] in [place] on 03/18/2021 at 9am. ZIO patch to be worn over the next 2 weeks, results will go to Dr Mckenzie. 4. If your symptoms should worsen, new symptoms develop or any of the signs and symptoms we discussed should arise please return to the emergency room or call 911 (if needed). Definitive disposition and diagnosis as appropriate pending reevaluation and review of above. Chest Pain Score (Numeric/FACES): 6 - Related Data Allergies Allergy/AdvReac Type Severity Reaction Status Date / Time No Known Allergies Allergy Verified 03/04/21 16:09 Home Meds: Home Meds Famotidine [Pepcid] 20 mg PO BEDTIME #30 tab 03/10/21 [Rx] Past Medical History - Past Health History Medical/Surgical History: Denies Medical/Surgical History HEENT History: Reports: None Cardiovascular History: Reports: None Respiratory History: Reports: None Gastrointestinal History: Reports: None Other Gastrointestinal History: liver biopsy-benign Genitourinary History: Reports: None Musculoskeletal History: Reports: None Neurological History: Reports: None Psychiatric History: Reports: None Endocrine/Metabolic History: Reports: None Hematologic History: Reports: None Immunologic History: Reports: None Oncologic (Cancer) History: Reports: None Dermatologic History: Reports: None - Infectious Disease History Infectious Disease History: Reports: None - Past Surgical History Head Surgeries/Procedures: Reports: None HEENT Surgical History: Reports: None Cardiovascular Surgical History: Reports: None Respiratory Surgical History: Reports: None GI Surgical History: Reports: None Endocrine Surgical History: Reports: None Other Endocrine Surgeries/Procedures: liver biopsy Social & Family History - Family History Family Medical History: No Pertinent Family History - Caffeine Use Caffeine Use: Reports: None ED ROS GENERAL - Review of Systems Review Of Systems: Comprehensive ROS is negative, except as noted in HPI. ED EXAM, GENERAL - Physical Exam Exam: See Below (See dictation) Course - Vital Signs Last Recorded V/S: Last Vital Signs Temp 97.8 F 03/12/21 10:32 Pulse 70 03/12/21 11:31 Resp 18 03/12/21 11:31 BP 132/68 03/12/21 10:32 Pulse Ox 96 03/12/21 11:31 - Orders/Labs/Meds Orders: Active Orders 24 hr Category Date Time Status EKG Documentation Completion [RC] STAT Care 03/12/21 10:20 Active CORONAVIRUS COVID-19 MIGUEL [MOLEC] Stat Lab 03/12/21 10:41 Ordered Labs: Laboratory Tests 03/12/21 03/12/21 03/12/21 Range/Units 10:36 10:36 10:36 WBC 6.04 (4.0-11.0) K/uL RBC 5.00 (4.50-5.90) M/uL Hgb 14.9 (13.0-17.0) g/dL Hct 42.8 (38.0-50.0) % MCV 85.6 (80.0-98.0) fL MCH 29.8 (27.0-32.0) pg MCHC 34.8 (31.0-37.0) g/dL RDW Std Deviation 38.9 (28.0-62.0) fl RDW Coeff of Paras 13 (11.0-15.0) % Plt Count 242 (150-400) K/uL MPV 9.70 (7.40-12.00) fL Neut % (Auto) 59.9 (48.0-80.0) % Lymph % (Auto) 26.8 (16.0-40.0) % [place] % (Auto) 10.3 (0.0-15.0) % Eos % (Auto) 2.5 (0.0-7.0) % Baso % (Auto) 0.5 (0.0-1.5) % Neut # (Auto) 3.6 (1.4-5.7) K/uL Lymph # (Auto) 1.6 (0.6-2.4) K/uL [place] # (Auto) 0.6 (0.0-0.8) K/uL Eos # (Auto) 0.2 (0.0-0.7) K/uL Baso # (Auto) 0.0 (0.0-0.1) K/uL Nucleated RBC % 0.0 /100WBC Nucleated RBCs # 0 K/uL D-Dimer, Quantitative 0.45 (0.0-0.50) mg/L FEU Sodium 141 (136-148) mmol/L Potassium 3.9 (3.5-5.1) mmol/L Chloride 107 (98-107) mmol/L Carbon Dioxide 26.4 (21.0-32.0) mmol/L BUN 16 (7.0-18.0) mg/dL Creatinine 0.9 (0.8-1.3) mg/dL Est Cr Clr Drug Dosing 160.88 mL/min Estimated GFR (MDRD) > 60.0 ml/min Glucose 101 (74-106) mg/dL Calcium 8.5 (8.5-10.1) mg/dL Total Bilirubin 0.6 (0.2-1.0) mg/dL AST 40 H (15-37) IU/L ALT 57 (14-63) IU/L Alkaline Phosphatase 104 (46-116) U/L Troponin I < 0.050 (0.000-0.056) ng/mL Total Protein 6.6 (6.4-8.2) g/dL Albumin 3.6 (3.4-5.0) g/dL Globulin 3.0 (2.6-4.0) g/dL Albumin/Globulin Ratio 1.2 (0.9-1.6) TSH, Ultra Sensitive 2.25 (0.36-3.74) uIU/mL Meds: Medications Discontinued Medications Generic Name Dose Route Start Last Admin Trade Name Freq PRN Reason Stop Dose Admin Al Hydroxide/Mg Hydroxide 15 0 ml 03/12/21 10:38 03/12/21 11:21 ml/ Metoclopramide HCl 5 mg/ PO 03/12/21 10:39 15 each Lidocaine HCl 5 ml ONETIME ONE Administration Departure - Departure Time of Disposition: 11:44 Disposition: Home, Self-Care 01 Clinical Impression: Nonspecific chest pain Instructions: Nonspecific Chest Pain, Adult, [id number] Referrals: PCP,None [Primary Care Provider] - Forms: ED Department Discharge Care Plan Goals: The following information is given to patients seen in the emergency department who are being discharged to home. This information is to outline your options for follow-up care. We provide all patients seen in our emergency department with a follow-up referral. The need for follow-up, as well as the timing and circumstances, are variable depending upon the specifics of your emergency department visit. If you don't have a primary care physician on staff, we will provide you with a referral. We always advise you to contact your personal physician following an emergency department visit to inform them of the circumstance of the visit and for follow-up with them and/or the need for any referrals to a consulting specialist. The emergency department will also refer you to a specialist when appropriate. This referral assures that you have the opportunity for follow-up care with a specialist. All of these measure are taken in an effort to provide you with optimal care, which includes your follow-up. Under all circumstances we always encourage you to contact your private physician who remains a resource for coordinating your care. When calling for follow-up care, please make the office aware that this follow-up is from your recent emergency room visit. If for any reason you are refused follow-up, please contact the [facility] Emergency Department at and asked to speak to the emergency department charge nurse. [facility] [address] [place] [id number] [place] [address] Thank you for choosing the [facility] emergency department in [place] for your medical needs today. It was a pleasure caring for you. Today you were seen in the emergency department for chest pain. 1. You were evaluated today on an emergent basis. Your lab work and EKG are normal. 2. You can alternate Tylenol and ibuprofen as needed for pain and fever management. 3. We have made you an expedited appointment to establish care and get a referral to cardiology. You are seeing Elaine aguilar [facility] in [place] on 03/18/2021 at 9am. ZIO patch to be worn over the next 2 weeks, results will go to Dr Mckenzie. 4. If your symptoms should worsen, new symptoms develop or any of the signs and symptoms we discussed should arise please return to the emergency room or call 911 (if needed). Please follow up with ADRIAN chowdary [place] at 09:00 on 03/18/21. Please arrive to your followup appointment 20 minutes early to check in Sepsis Event Note (ED) - Evaluation Sepsis Screening Result: No Definite Risk - Focused Exam Vital Signs: Vital Signs Temp Pulse Resp BP Pulse Ox 03/12/21 11:31 70 18 96 03/12/21 10:32 97.8 F 60 17 132/68 94 L - My Orders Last 24 Hours: My Active Orders 03/12/21 10:20 EKG Documentation Completion [RC] STAT 03/12/21 10:41 CORONAVIRUS COVID-19 MIGUEL [MOLEC] Stat - Assessment/Plan Last 24 Hours: My Active Orders 03/12/21 10:20 EKG Documentation Completion [RC] STAT 03/12/21 10:41 CORONAVIRUS COVID-19 MIGUEL [MOLEC] Stat
[2021-03-12 11:29] LABS: BLOOD UREA NITROGEN,BUN 16 mg/dL (7.0-18.0); CARBON DIOXIDE,CO2 26.4 mmol/L (21.0-32.0); CHLORIDE,CL 107 mmol/L (98-107); GLUCOSE RANDOM 101 mg/dL (74-106); POTASSIUM,K 3.9 mmol/L (3.5-5.1); SODIUM,NA 141 mmol/L (136-148)
[2021-03-12 11:33] VITALS: PULSE 70
--- NOTE | 2021-03-12 13:27 | PCM.EKG ---
#1 Interpretation EKG Date: 03/12/21 Time: 10:45 Rhythm: NSR Rate (Beats/Min): 61 [place]: Normal P-Wave: Present QRS: Normal ST-T: Normal QT: Normal UT/PQ Interval: 166 EKG Interpretation Comments: Normal EKG, no ischemic changes
== END 2021-03-12 12:08 | disposition home or self-care (01) ==
LOC: MW.ED 10:07
DX: R07.2 Precordial pain (principal); Z20.822 Contact with and (suspected) exposure to COVID-19
CPT/HCPCS: 36415; 80053; 84443; 84484; 85025; 85379; 87635; 93005; 99285; A9270; U0002

== ENCOUNTER 2024-09-10 23:05 | Emergency (ER) | payer SELFPAY ==
[2024-09-10 23:14] VITALS: BP 174/92; PULSE 71
[2024-09-10] MEDS: Ibuprofen 600 MG Tab PO ONE (23:21)
== END 2024-09-10 23:28 | disposition home or self-care (01) ==
LOC: MW.ED 23:05
DX: R68.84 Jaw pain (principal); M25.512 Pain in left shoulder; F17.210 Nicotine dependence, cigarettes, uncomplicated; Z75.8 Other problems related to medical facilities and other health care; Z79.899 Other long term (current) drug therapy
CPT/HCPCS: 93005; 99283; A9270; 93010